=== PATIENT | female | born 1980 | race Caucasian/White ===

== ENCOUNTER 2020-04-01 16:45 | Observation (INO) | payer BC ==
[2020-04-01] MEDS ORDERED: Famotidine/PF 20 mg/2ml Vial ONE (16:53)
[2020-04-01] MEDS ORDERED: Mag-Al Plus 1200 MG/1200 MG/120 MG/30 ML UDCUP ONE (17:59)
[2020-04-01] MEDS ORDERED: Lidocaine Viscous Sol 2% 15 ml UD Cup ONE (17:59)
[2020-04-01 19:31] VITALS: BMI 26.4
[2020-04-01] MEDS ORDERED: EPINEPHrine 1 MG/ML AMP IM PRN (19:35)
[2020-04-01] MEDS: Famotidine 20 MG TAB PO SCH (19:57)
[2020-04-01] MEDS: diphenhydrAMINE 25 MG CAP PO PRN (20:20)
[2020-04-02] MEDS: diphenhydrAMINE 25 MG CAP PO PRN ×3 (02:51→16:13)
[2020-04-02] MEDS: Famotidine 20 MG TAB PO SCH (08:23)
[2020-04-02] MEDS ORDERED: FLU VACC QS2020-21(6MOS UP)/PF 60 MCG/0.5 ML SYRINGE IM ONE (09:00)
[2020-04-02] MEDS ORDERED: methylPREDNISolone Sod Succ/PF 125 MG/2 ML VIAL IVP SCH (09:30)
[2020-04-02] MEDS ORDERED: EPINEPHrine 1 MG/ML AMP IM SCH (09:30)
[2020-04-02] MEDS ORDERED: Ondansetron PF 4 MG/2 ML Vial IVP PRN (09:33)
[2020-04-02] MEDS ORDERED: Sodium Chloride 0.9% 500 ML IV SCH (09:45)
[2020-04-02 17:56] LABS: SARS-CoV-2 MS2 Positive; SARS-CoV-2 N Gene Negative; SARS-CoV-2 S Gene Negative; SARS-CoV-2 by NAA Not Detected (NotDetected); SARS-CoV-2 orf1ab Negative
[2020-04-02 18:06] VITALS: BP 127/74; TEMP 98.7
[2020-04-03] MEDS ORDERED: predniSONE 20 MG TAB PO SCH (08:00)
--- NOTE | 2020-04-04 01:13 | DIS ---
DATE OF ADMISSION: 04/01/2020 DATE OF DISCHARGE: 04/02/2020 FINAL DIAGNOSES: 1. Anaphylactic reaction secondary to a wasp sting. 2. History of HELLP syndrome. HOSPITAL COURSE: The patient is a very pleasant 39-year-old white female, who has a previous history of local reaction to fire ant bites, but no previous history of bee sting reaction, who was stung by a wasp on the date of admission to the [facility]. She was stung on the thigh, quickly began to have burning and tingling and itching in her fingers and hands, and then began to have tingling in her mouth, began to have swelling in her mouth and began to feel dizzy. Ambulance was called, proceeded to give her epinephrine, steroids, and Benadryl. When she presented to the emergency room, she was feeling much better with only minimal amount of rash on her chest and at the sting bite on her left thigh. She had no difficulty breathing, no wheezing, no altered vital signs; however, because of the 5% possibility of recurrence within 24 hours and because she could not obtain an epinephrine injector pen at this late hour, she was therefore placed in [facility]. She was monitored but however began to have recurrent hives early the next morning with no wheezing or swelling of her lips. At that time, she had diffuse hives on her chest, arms, legs, was therefore given another dose of IV Solu-Medrol, also was given Benadryl 50 mg and was given fluid bolus of 500 to prevent any hypotension and was given another dose of 0.3 of epinephrine. She quickly responded to that, had no further problems with nausea, difficulty breathing, was seen several hours later after that and was feeling well with only some mild itching of her hands, but no rash except a small spot on her right forearm. She was able to obtain epinephrine pen and therefore was felt to be stable to be discharged home on a tapered dose of prednisone plus Benadryl plus epinephrine autoinjector see if needed. She was given instructions for bee stings and anaphylaxis and advised to follow up with her PCP or to return to the emergency room if she has recurrent symptoms. Job ID: [id number]
== END 2020-04-02 18:23 | disposition home or self-care (01) ==
LOC: NAV ERS 16:45 → NAV ACUTE 19:12
PROVIDERS: ADMIT Internal Medicine; ATTEND Internal Medicine
DX: T63.461A Toxic effect of venom of wasps, accidental (unintentional), initial encounter (principal); Z88.1 Allergy status to other antibiotic agents; Z88.5 Allergy status to narcotic agent; Z88.6 Allergy status to analgesic agent; Z91.030 Bee allergy status; Z20.828 Contact with and (suspected) exposure to other viral communicable diseases
CPT/HCPCS: 87635; 96372; 96374; 96375; G0378; J0171; J2930; J7030; Q0163; S0028; U0003